=== PATIENT | female | born 1975 | race Caucasian/White ===

== ENCOUNTER 2023-04-05 10:53 | Outpatient (OUT) | payer OTHER, SELFPAY ==
--- NOTE | 2023-04-05 10:56 | MM_ITS ---
Patient Name: DYLAN WALL MR#: [id number] : 1975 Exam Date: 04/05/2023 Ordering Doctor: DR RIMA ZUÑIGA M.D. RADIOLOGY REPORT PROCEDURE: MM TOMOSYNTHESIS SCREENING BI COMPARISON: MM TOMOSYNTHESIS SCREENING BI, 05/08/2016. INDICATIONS: Screening Calculator Name NCI Breast Cancer Risk Assessment Tool 5 Year Breast Cancer Risk 0.80% Lifetime Breast Cancer Risk 8.30% Personal Breast Cancer No Personal Ovarian Cancer No Treatments None Family Cancers None LOCATION: [facility] BREAST COMPOSITION: Heterogeneously dense,which may obscure small masses. FINDINGS: DIAGNOSTIC CATEGORY 2--BENIGN FINDING. NO CHANGE FROM COMPARISON. Scattered benign-appearing nodules are present. Scattered benign-appearing calcifications are present. Scattered benign-appearing lymph nodes are present. RIGHT BREAST: No significant suspicious finding. LEFT BREAST: No significant suspicious finding. RECOMMENDATIONS: ROUTINE MAMMOGRAM AND CLINICAL EVALUATION IN 12 MONTHS. PLEASE NOTE: A NORMAL MAMMOGRAM DOES NOT EXCLUDE THE POSSIBILITY OF BREAST CANCER. A CLINICALLY SUSPICIOUS PALPABLE LUMP SHOULD BE BIOPSIED. Dictated by: Keyon Parks MD on 04/05/2023 at 15:35 Approved by: Keyon Parks MD on 04/05/2023 at 15:37
== END 2023-04-05 10:54 | disposition home or self-care (01) ==
LOC: MAMMO 10:53
PROVIDERS: PCP Family Medicine; Visit Provider Family Medicine
DX: Z12.31 Encounter for screening mammogram for malignant neoplasm of breast (principal)
CPT/HCPCS: 77063; 77067

== ENCOUNTER 2023-09-08 15:25 | Emergency (ER) | payer OTHER, SELFPAY ==
[2023-09-08 15:36] VITALS: BP 143/124; PULSE 82; TEMP 36.9; O2SAT 99; BMI 32.7
--- OUTSIDE RECORDS SUMMARY | 2023-09-08 15:37 | XMS_ITS | CCD ---
Author Organization [facility] Care Team Providers Care Soccer Ball Assembler Name Role Phone MARIE ZUÑIGA Admitting Unavailable MARIE ZUÑIGA Attending Unavailable MARIE ZUÑIGA Consulting Unavailable Sana Dorantes Primary Care Provider BladesJackie Unavailable Jackie Luna Admitting Unavailable Jackie Luna Attending Unavailable Marie Zuñiga Primary Care Unavailable MD Jackie Luna Attending Provider MD Marie Zuñiga Primary Care Provider Allergies Allergy Classification Reported Allergen(s) Allergy Type Date of Onset Reaction(s) Facility Unclassified (2 sources) Seasonal allergy Allergy to substance 3 Other: See Comments [facility] (1 source) Milk Drug allergy (disorder) 5 [facility] (1 source) Ragweed Drug allergy (disorder) 7 [facility] (2 sources) Morphine Drug Allergy 1 [facility] Rep[facility] Medications Current Medications Medication Drug Class(es) Dates Sig (Normalized) Sig (Original) fexofenadine hydrochloride 180 mg oral tablet (5 sources) Histamine-1 Receptor Antagonist Start: 10-14-2020 take 1 tablet by mouth every twenty-four hours Fexofenadine (Ludivina) 180 mg Tablet Active 180 MG PO Q24H October 14, 2020 12:00am Ludivina Active FEXOFENADINE HCL (LUDIVINA ORAL) Take by mouth. 0 Active Comment on above: Take by mouth. L. Acidophilus-L. Rhamnosus (Probiotic) 15 billion cell Capsule (1 source) Start: 10-14-2020 take 1 capsule by mouth once daily in the morning L. Acidophilus-L. Rhamnosus (Probiotic) 15 billion cell Capsule Active 15 CAP PO Every morning October 14, 2020 12:00am lysine 500 mg oral tablet (1 source) Start: 10-14-2020 take 1 tablet by mouth once daily in the morning Lysine (L-Lysine) 500 mg Tablet Active 500 MG PO Every morning October 14, 2020 12:00am Multivitamin preparation (1 source) Start: 10-14-2020 take 1 tablet by mouth once daily in the morning Multivitamin Active 1 TAB PO Every morning October 14, 2020 12:00am [place] 5-Zge-Qpj-Fish Oil (Fish Oil) 60-90-500 mg Capsule (1 source) Start: 10-14-2020 take 1 capsule by mouth once daily in the morning [place] 7-Roh-Hyr-Fish Oil (Fish Oil) 60-90-500 mg Capsule Active 1 CAP PO Every morning October 14, 2020 12:00am Completed/Discontinued Medications Medication Drug Class(es) Dates Sig (Normalized) Sig (Original) acetaminophen 325 mg / oxyCODONE hydrochloride 5 mg oral tablet (2 sources) Opioid Agonist Start: 11-01-2012 take 1 tablet by mouth every four hours as needed oxyCODONE-acetam inophen (PERCOCET) 5-325 mg tablet Take 1 tablet by mouth every 4 hours as needed for Pain. 30 tablet 0 11/01/2012 Active Comment on above: Take 1 tablet by luz maria th every 4 hours as needed for Pain. docusate sodium 100 mg oral capsule (2 sources) Start: 11-01-2012 take 1 capsule by mouth twice daily docusate sodium (COLACE) 100 mg capsule Take 1 capsule by mouth twice daily. 40 capsule 2 11/01/2012 Active Comment on above: Take 1 capsule by mo [facility] twice daily. ibuprofen 600 mg oral tablet (4 sources) Nonsteroidal Anti-inflammatory Drug Start: 11-01-2012 take 1 tablet by mouth every six hours as needed ibuprofen 600 mg tablet Take 1 tablet by mouth every 6 hours as needed for Pain. 60 tablet 2 11/01/2012 Active Motrin Active Comment on above: Take 1 tablet by luz maria th every 6 hours as needed for Pain. 12 hr pseudoephedrine hydrochloride 120 mg extended release oral tablet (2 sources) alpha-Adrenergic Agonist Start: 10-23-19 13 take 1 tablet by mouth every twelve hours Pseudoephedrine HCl (12 HOUR DECONGESTANT) 120 mg TbER Take 1 tablet by mouth every 12 hours. 0 10/22/2012 Active Comment on above: Take 1 tablet by luz maria th every 12 hours. Problems Problem Classification Problem Date Documented Date Episodic/Chronic Other acquired deformities (2 sources) Lumbar spondylolisthesis; Translations: [Spondylolisthesis, lumbar region] Episodic Other connective tissue disease (2 sources) Enthesopathy of hip region; Translations: [Other specified enthesopathies of left lower limb, excluding foot] Episodic Other and delivery including normal (1 source) test positive; Translations: [Encounter for test, result positive] Episodic Unclassified (1 source) Low back pain, unspecified; Translations: [Low back pain, unspecified] Onset: 06-08-2022 Results Test Name Value Interpretation Reference Range Facil ity MRI Lumbar Spine w/oon 02-03 MRI Lumbar Spine w/o HISTORY: Low back pain, left leg radiation, numbness and tingling x 1 year PROCEDURE: Multiplanar, multisequence imaging including T1, T2 without contrast. FINDINGS: Normal lumbar vertebral body height, relatively normally aligned. No bone marrow edema or fracture. No deep soft tissue inflammatory signal. Normal conus medullaris and filum terminale. Unremarkable paravertebral soft tissues, kidneys, and collecting systems. T12/L1 - L2/3: Normal. L3/4: Minimal disc space loss. 2 mm anterolisthesis, minimal disc bulging. Broad-based left annular tear occupying the exit neuroforaminal zone. Mild facet arthropathy. Mild left mid and exit neuroforaminal zone stenosis. No spinal canal stenosis. L4/5: Mild disc space loss. Left lateral recess disc herniation, lateral extension into the left neuroforaminal zone, 6 x 10 mm AP by transverse diameter, cranial caudal length of 20 mm impressing upon the left L4 and L5 nerve roots. Mild right neuroforaminal zone disc bulging. L5/S1: Minimal disc space loss. No disc herniation or spinal canal stenosis. Central broad-based annular tear, mild disc bulging. No spinal canal or neuroforaminal stenosis. IMPRESSION: Left L4/5 lateral recess disc herniation, craniad extension, severe stenosis Report reported and signed by Mariano Cheung on 02/07/2022 0659 Normal [facility] CBC AUTO DIFFon 06-15-2018 Basophils (Bld) [#/Vol] 0.0 103/ul Normal 0.0-0.1 [facility] Comment on above: Performed By: #### H FPFCBC #### [facility] [address] [place], [place] [id number] Francisco Eneida Basophils/100 WBC (Bld) 0.4 % Normal 0.2-2.0 [facility] Comment on above: Performed By: #### H FPFCBC #### [facility] [address] [place], [place] [address] Francisco Eneida Eosinophils (Bld) [#/Vol] 0.2 103/ul Normal 0.0-0.7 [facility] Comment on above: Performed By: #### H FPFCBC #### [facility] [address] [place] [address] Francisco Eneida Eosinophils/100 WBC (Bld) 2.1 % Normal 0.9-7.0 [facility] Comment on above: Performed By: #### H FPFCBC #### [facility] [address] [place] [address] Francisco Eneida Erythrocyte distribution width (RBC) [Ratio] 12.4 % Normal 11.0-15.0 [facility] Comment on above: Performed By: #### H FPFCBC #### [facility] [address] [place] [address] Francisco Eneida Hematocrit (Bld) [Volume fraction] 39.2 % Normal 36.0-48.0 [facility] Comment on above: Performed By: #### H FPFCBC #### [facility] [address] [place], [place] [address] Francisco Eneida Hemoglobin (Bld) [Mass/Vol] 13.0 g/dL Normal 12.0-16.0 [facility] Comment on above: Performed By: #### H FPFCBC #### [facility] [address] [place] [address] Francisco Eneida IG # 0.02 10e3/ul Normal 0.00-0.03 [facility] Comment on above: Performed By: #### H FPFCBC #### [facility] [address] [place] [address] Francisco Eneida IG % 0.3 % Normal 0.0-0.5 [facility] Comment on above: Performed By: #### H FPFCBC #### [facility] [address] [place] [address] Francisco Eneida Lymphocytes (Bld) [#/Vol] 2.1 103/ul Normal 1.2-3.8 [facility] Comment on above: Performed By: #### H FPFCBC #### [facility] [address] [place] [address] Francisco Eneida Lymphocytes/100 WBC (Bld) 27.6 % Normal 20.5-60.0 [facility] Comment on above: Performed By: #### H FPFCBC #### [facility] [address] [place] [address] Francisco Eneida MCH (RBC) [Entitic mass] 30.4 pg Normal 26.7-34.0 [facility] Comment on above: Performed By: #### H FPFCBC #### [facility] [address] [place] [address] Francisco Eneida MCHC (RBC) [Mass/Vol] 33.2 g/dL Normal 29.9-35.2 [facility] Comment on above: Performed By: #### H FPFCBC #### [facility] [address] [place] [address] Francisco Eneida MCV (RBC) [Entitic vol] 91.8 fL Normal 81.0-99.0 [facility] Comment on above: Performed By: #### H FPFCBC #### [facility] [address] [place] [address] Francisco Eneida Monocytes (Bld) [#/Vol] 0.7 103/ul Normal 0.3-0.8 [facility] Comment on above: Performed By: #### H FPFCBC #### [facility] [address] [place], [place] [address] Francisco Eneida Monocytes/100 WBC (Bld) 9.3 % Normal 1.7-12.0 [facility] Comment on above: Performed By: #### H FPFCBC #### [facility] [address] [place] [address] Francisco Eneida Neutrophils (Bld) [#/Vol] 4.6 103/ul Normal 1.4-6.5 [facility] Comment on above: Performed By: #### H FPFCBC #### [facility] [address] [place], [place] [address] Francisco Eneida Neutrophils/100 WBC (Bld) 60.3 % Normal 43.0-75.0 [facility] Comment on above: Performed By: #### H FPFCBC #### [facility] [address] [place], [place] [address] Francisco Eneida Platelet mean volume (Bld) [Entitic vol] 9.9 fL Normal 9.5-13.5 [facility] Comment on above: Performed By: #### H FPFCBC #### [facility] [address] [place], [place] [address] Francisco Eneida Platelets (Bld) [#/Vol] 291 103/ul Normal 150-450 [facility] Comment on above: Performed By: #### H FPFCBC #### [facility] [address] [place] [address] Francisco Eneida RBC (Bld) [#/Vol] 4.27 106/ul Normal 4.20-5.40 [facility] Comment on above: Performed By: #### H FPFCBC #### [facility] [address] [place] [address] Francisco Eneida WBC (Bld) [#/Vol] 7.6 103/ul Normal 4.0-11.0 [facility] Comment on above: Performed By: #### H FPFCBC #### [facility] [address] [place] [address] Franciscomyra Monique [employer] PROFILEon 06-15- 019 Albumin [Mass/Vol] 3.6 g/dL Normal 3.5-5.0 [facility] Comment on above: Performed By: #### H FPF #### [facility] [address] [place], [place] [address] Francisco Eneida Albumin/Globulin [Mass ratio] 1.0 {ratio} Normal [facility] Comment on above: Performed By: #### H FPF #### [facility] [address] [id number] Francisco Eneida ALP [Catalytic activity/Vol] 98 U/L Normal 38-126 [facility] Comment on above: Performed By: #### H FPF #### [facility] [address] [place], [place] [address] Francisco Eneida ALT [Catalytic activity/Vol] 55 U/L Critically high 9-52 [facility] Comment on above: Performed By: #### H FPF #### [facility] [address] [place] [address] Francisco Eneida AST [Catalytic activity/Vol] 33 U/L Normal 14-36 [facility] Comment on above: Performed By: #### H FPF #### [facility] [address] [place] [address] Francisco Eneida Bilirubin Ql (U) 0.3 mg/dL Normal 0.2-1.3 [facility] Comment on above: Performed By: #### H FPF #### [facility] [address] [place], [place] [address] Francisco Eneida Calcium [Mass/Vol] 8.9 mg/dL Normal 8.4-10.2 [facility] Comment on above: Performed By: #### H FPF #### [facility] [address] [place], [place] [address] Francisco Eneida Chloride [Moles/Vol] 102 mmol/L Normal 98-107 [facility] Comment on above: Performed By: #### H FPF #### [facility] [address] [place], [place] [address] Francisco Eneida CHOL-HDL RATIO NORM SEE BELOW Normal [facility] Comment on above: Result Comment: 3.3 - 4.4 LOW RISK 4.4 - 7.1 AVERAGE RISK 7.1 - 11.0 MODERATE RISK >11.0 HIGH RISK Performed By: #### H FPF #### [facility] [address] [place] [address] Francisco Eneida Cholesterol [Mass/Vol] 180 mg/dL Normal <=200 [facility] Comment on above: Performed By: #### H FPF #### [facility] [address] [place] [address] Francisco Eneida Cholesterol in HDL [Mass/Vol] > or = 60 mg/dl - LOW CARDIOVASCULAR RISK <40 mg/dl - HIGH CARDIOVASCULAR RISK Normal [facility] Comment on above: Performed By: #### H FPF #### [facility] [address] [place], [place] [address] Francisco Eneida Cholesterol in HDL [Mass/Vol] 69 mg/dL Normal [facility] Comment on above: Performed By: #### H FPF #### [facility] [address] [place], [place] [address] Francisco Eneida Cholesterol in LDL [Mass/Vol] 95.4 mg/dL Normal [facility] Comment on above: Performed By: #### H FPF #### [facility] [address] [place], [place] [address] Francisco Eneida Cholesterol in LDL [Mass/Vol] SEE BELOW Normal [facility] Comment on above: Result Comment: <100 mg/dl OPTIMAL 100 - 129 mg/dl NEAR OR ABOVE OPTIMAL 130 - 159 mg/dl BORDERLINE HIGH 160 - 189 mg/dl HIGH >190 mg/dl VERY HIGH Performed By: #### H FPF #### [facility] [address] [place] [address] Francisco Eneida Cholesterol.total/C holesterol in HDL [Mass ratio] 2.6 {ratio} Normal [facility] Comment on above: Performed By: #### H FPF #### [facility] [address] [place] [address] Francisco Eneida CO2 [Moles/Vol] 25.7 mmol/L Normal 22.0-30.0 [facility] Comment on above: Performed By: #### H FPF #### [facility] [address] [id number] Francisco Eneida Creatinine [Mass/Vol] 0.89 mg/dL Normal 0.52-1.04 [facility] Comment on above: Performed By: #### H FPF #### [facility] [address] [id number] Francisco Eneida Globulin (S) [Mass/Vol] 3.5 g/dL Normal [facility] Comment on above: Performed By: #### H FPF #### [facility] [address] [address] Francisco Eneida Glucose [Mass/Vol] 90 mg/dL Normal 74-106 [facility] Comment on above: Performed By: #### H FPF #### [facility] [address] [place] [address] Francisco Eneida Potassium [Moles/Vol] 3.9 mmol/L Normal 3.4-5.0 [facility] Comment on above: Performed By: #### H FPF #### [facility] [address] [address] Francisco Eneida Protein [Mass/Vol] 7.1 g/dL Normal 6.1-8.2 [facility] Comment on above: Performed By: #### H FPF #### [facility] [address] [place] [address] Francisco Eneida Sodium [Moles/Vol] 137 mmol/L Normal 137-145 [facility] Comment on above: Performed By: #### H FPF #### [facility] [address] [address] Francisco Eneida Triglyceride [Mass/Vol] 78 mg/dL Normal <=150 [facility] Comment on above: Performed By: #### H FPF #### [facility] [address] [id number] Francisco Eneida TSH Qn 1.418 uIU/mL Normal 0.470-4.680 [facility] Comment on above: Performed By: #### H FPF #### [facility] [address] [address] Francisco Eneida Urea nitrogen [Mass/Vol] 14.0 mg/dL Normal 7.0-17.0 [facility] Comment on above: Performed By: #### H FPF #### [facility] [address] [place] [address] Francisco Monique Urea nitrogen/Creatinine [Mass ratio] 15.7 mg/mg Normal [facility] Comment on above: Performed By: #### H FPF #### [facility] [address] [place] [address] Francisco Monique VLDL CALC 15.6 mg/dL Normal [facility] Comment on above: Performed By: #### H FPF #### [facility] [address] [place] [address] Francisco Monique No Panel Informationon 05-10 Plant Biology Professor Report Summary: Impression: There is a gestational sac within the uterus with a good decidual reaction. A yolk sac is seen within the gestational sac. It is too early to visualize a pole. The mean gestational sac size is equivalent to 4 weeks and 6 days which is within 4 days of the LMP dating of 5 weeks and 4 days. The LOKI based on LMP is 01/06/14. The left ovary appears normal. The right ovary contains a corpus luteum as described in the section below. No adnexal masses were seen. There is a scant amount of free fluid adjacent to the right ovary. Recommendations: IUP. Repeat u/s in 2 weeks. Indication: Tubal reanastamosis. Ectopic. History: Age: 37 years. Maternal age at EDC: 38 years. Dating: LMP: 04/01/2013 EDC: 01/06/2014 GA by LMP: 5w3d Current Scan on: 05/09/2013 EDC: 01/10/2014 GA by current scan: 4w6d Best Overall Assessment: 05/09/2013 EDC: 01/06/2014 Assessed GA: 5w3d The calculation of the gestational age by current scan was based on GSD. The Best Overall Assessment is based on the LMP. Early Assessment: Biometry: GSD 8.8 mm n/a 4w6d (TREE) Gestational Sac present. Yolk Sac present. Embryo absent. Maternal Structures: Uterus: anteverted. Size: Longitudinal 97 mm. Anterio- posterior 64 mm. Transverse 74 mm. Volume: 240.5 ml. Right Ovary: Right Ovary size: 51 mm x 31 mm x 26 mm. Volume: 21.5 ml. Corpus Luteum Right Ovary: 27 mm x 18 mm x 26 mm. Left Ovary: Left Ovary size: 34 mm x 21 mm x 24 mm. Volume: 9.0 ml. Performed by:Michel Najera RDMS Read by:Maritza Simms M.D. [facility] Encounters Encounter Date Encounter Type Care Provider Facility Start: 08-27-2023 ambulatory Not Availa ble Start: 08-20-2023 End: 08-20-2023 ambulatory Not Available Start: 08-06-2023 End: 08-06-2023 ambulatory Not Available Start: 07-23-2023 End: 07-23-2023 ambulatory Not Available Start: 07-09-2023 End: 07-09-2023 ambulatory Not Available Start: 06-25-2023 End: 06-25-2023 ambulatory Not Available Start: 06-18-2023 End: 06-18-2023 ambulatory Not Available Start: 06-11-2023 End: 06-11-2023 ambulatory Not Available Start: 06-04-2023 End: 06-04-2023 ambulatory Not Available Start: 05-23-2023 End: 05-23-2023 ambulatory Not Available Start: 05-07-2023 End: 05-07-2023 ambulatory Not Available Start: 04-16-2023 End: 04-16-2023 ambulatory Not Available Start: 03-26-2023 End: 03-26-2023 ambulatory Not Available Start: 03-12-2023 End: 03-12-2023 ambulatory Not Available Start: 02-26-2023 End: 02-26-2023 ambulatory Not Available Start: 02-12-2023 End: 02-12-2023 ambulatory Not Available Start: 01-08-2023 End: 01-08-2023 ambulatory Not Available Start: 12-25-2022 End: 12-25-2022 ambulatory Not Available Start: 06-08-2022 End: 06-08-2022 ambulatory Jackie Luna Facility:[facility] Start: 06-08-2022 End: 06-08-2022 Discharged Recurring MD Marie Zuñiga Work Phone: [facility] [address] Start: 02-21-2022 End: 02-21-2022 ambulatory Jackie Luna Other [facility] [employer] Other Start: 02-21-2022 Encounter by mary Luna [facility] Start: 06-15-2018 End: 06-16-2018 Patient encounter procedure MARIE ZUÑIGA Facility:[facility] Start: 05-07-2013 End: 05-07-2013 Telephone encounter Dale Culp MD Work Phone: Gynecology Start: 02-28-2013 End: 02-28-2013 Telephone encounter Dale Culp MD Work Phone: Gynecology Procedures Date Procedure Procedure Detail Performing Clinician Start: 05-09-2013 OBSTETRIC ULTRASOUND WHI Dale Culp MD Work Phone: Plan of Treatment Date Care Activity Detail Author Start: 10-06-2020 Influenza vaccination INFLUENZA (Sea son Ended) [facility] Start: 06-14-2019 DIABETES SCREEN DIABETES SCREEN [facility] Start: 06-14-2019 LIPID SCREEN LIPID SCREEN [facility] Start: 2014 Mammography MAMMOGRAM [facility] Start: 2004 HPV TESTING HPV TESTING [facility] Start: 06-14-1995 PAP TESTING PAP TESTING [facility] Start: 1993 Urine microalbumin profile DTAP,TDAP ,TD (1 - Tdap) [facility] Start: 1992 HEPATITIS C SCREENING HEPATITIS C SC REENING [facility] Start: 1992 HIV SCREENING HIV SCREENING [facility] Start: 1986 Adult depression scr eening assessment DEPRESSION SCREENING [facility] Immunizations Immunization Date Immunization Notes Care Provider Jen ibarra 09-29-2020 COVID-19 Amarilis Azul (Pfizer) MD Marie Zuñiga Work Phone: [facility] 09-08-2020 COVID-19 Amarilis Azul (Pfizer) MD Marie Zuñiga Work Phone: [facility] Payers Date Payer Category Payer Unknown [id number] 2012 Unknown [employer] PPO [id number] 2012-2019 PPO [id number] 2012 Self-pay SELF PAY PACKAGE PRICING SELF PAY PACKAGE PRICING [id number] 2012-2015 Indemnity [id number] 1974 Unknown [id number] [id number] 1974 Unknown [id number] 2.16.840.1.142007.3.579.2.1258 1974 Unknown [id number] 2.16.840.1.929604.3.579.2.1258 1974 Unknown [id number] 2.16.840.1.958566.3.579.2.1258 1974 Unknown [id number] 2.16.840.1.482583.3.579.2.1258 1974 Unknown [id number] 2.16.840.1.274512.3.579.2.1258 1974 Unknown [id number] 2.16.840.1.206771.3.579.2.1258 1974 Unknown [id number] 2.16.840.1.206425.3.579.2.1258 1974 Unknown [id number] 2.16.840.1.710224.3.579.2.1258 1974 Unknown [id number] 2.16.840.1.091822.3.579.2.1258 1974 Unknown [id number] 2.16.840.1.696434.3.579.2.1258 1974 Unknown [id number] 2.16.840.1.134904.3.579.2.1258 1974 Unknown [id number] 2.16.840.1.253926.3.579.2.1258 1974 Unknown [id number] 2.16.840.1.145801.3.579.2.1258 1974 Unknown [id number] 2.16.840.1.556993.3.579.2.1258 1974 Unknown [id number] 2.16.840.1.470614.3.579.2.9 1974 Unknown [id number] 2.16.840.1.472280.3.579.2.9 1974 Unknown [id number] 2.16.840.1.035226.3.579.2.1259 1959 Self-pay Unknown [id number] 2.16.840.1.194646.3.579.2.593 Unknown [id number] 2.16.840.1.547784.3.579.2.531 Unknown Nava QUINTERO/NATHAN [id number] Social History Date Type Detail Facility Start: 11-28-2012 End: 10-21-2020 Tobacco smoking status NHIS Former smoker [facility] Start: 11-28-2012 Alcohol intake Current non-dr system sales consultant of alcohol (finding) [facility] Start: 1975 Sex Assigned At Not on file C [facility] Sex Assigned At Sex Assigned At [facility] Other Start: 1975 Sex Assigned At Female F [facility] Note 05-08-2013 Telephone Encounter - Shira Bledsoe (Hilda) - 05/08/2013 6:06 PM EDTTelephone Encounter - Ghislaine Shah (Child Life Therapist) - 05/07/2013 3:15 PM EDT Note Date & Type Note Facility 05-08-2013 Miscellaneous Notes Received HCG faxed from [facility] with HCG drawn 05/089=[id number] Pt is feeling well and so will come in tomorrow 05/09 11am for an early US to be sure is in the uterus after her tubal reversal surgery. She denies ectopic warnings. She lives near [place] so will then proceed to OB care there. paulette Simms Patient calls with positive urine test. (1SAB) History of ectopic: No History of pelvic/abdominal surgeries: tubal reversal LMP 04/01/13, fertility medications used this cycle n/a, date of LH surge: n/a, IUI done: n/a Blood type: O, POS, per record, rubella: Immune , varicella: had as a child Current medications: Current outpatient prescriptions: oxyCODONE-acetaminophen (PERCOCET) 5-325 mg tablet Take 1 tablet by mouth every 4 hours as needed for Pain. ibuprofen 600 mg tablet Take 1 tablet by mouth every 6 hours as needed for Pain. docusate sodium (COLACE) 100 mg capsule Take 1 capsule by mouth twice daily. Pseudoephedrine HCl (12 HOUR DECONGESTANT) 120 mg TbER Take 1 tablet by mouth every 12 hours. FEXOFENADINE HCL (LUDIVINA ORAL) Take by mouth. Only taking PNV and Ludivina Advised normal symptoms of and s/s of need for follow up. Labs ordered: HCG: Faxed order to [facility] Dr. Culp [phone]-Patient had a tubal reversal and is would like to speak with the nurse. documented in this encounter [facility] Note 03-18-2013 Telephone Encounter - Ghislaine Shah (Carmine) - 03/18/2013 1:02 PM ESTTelephone Encounter - Shira Bledsoe (Hilda) - 03/18/2013 8:58 AM ESTTelephone Encounter - Ghislaine Shah (Carmine) - 03/07/2013 2:01 PM EST Note Date & Type Note Facility 03-18-2013 Miscellaneous Notes Called [facility]. HC.8 (negative). Patient has already stopped bleeding. Patient knows this was not a period. Next period will be #1 then the following one she can start trying again. Patient in agreement with plan. FYI Dr. Faclone and Gregoria Checking the quant list and I do not see her results for . Note to Ghislaine. Did you get the fax at [place]? Called patient to let her know HCG level. HCG quant= 13.79 Apologized and let her know she will probably start bleeding soon. Denies any cramping or bleeding at this time. Let her know should have a heavier period, but if she starts to soak a pad an hour will need to be evaluated. Will follow HCG levels weekly until negative and then wait 2 normal cycles to start trying again. Patient in agreement and sad as expected and states they will wait until June now. Faxed another req to [place] so the patient has it. Will get this done next Sun or Sun (03/14 or 03/15). PAULETTE Culp Called [facility] to get lab results. Done on 02/28/13 HC.85 Rubella: > 350: immune Called patient to review good lab results. Let her know to get another HCG done to ensure rising appropriately. She will get an HCG done on 03/06/13 at [facility]-see letters. PAULETTE Culp Per the letter, the results should have been faxed to [place]. Note to Ghislaine to check on Sunday. [phone]- Patient calling for test results. Patient calls with positive urine test. History of ectopic: No History of pelvic/abdominal surgeries: Yes, tubal reversal 11/2012 LMP 02/13/13, fertility medications used this cycle n/a, date of LH surge: n/a, IUI done: n/a Blood type: O, POS, Rubella: Unsure , varicella: Immune (per patient) Current medications: Current outpatient prescriptions: oxyCODONE-acetaminophen (PERCOCET) 5-325 mg tablet Take 1 tablet by mouth every 4 hours as needed for Pain. ibuprofen 600 mg tablet Take 1 tablet by mouth every 6 hours as needed for Pain. docusate sodium (COLACE) 100 mg capsule Take 1 capsule by mouth twice daily. Pseudoephedrine HCl (12 HOUR DECONGESTANT) 120 mg TbER Take 1 tablet by mouth every 12 hours. FEXOFENADINE HCL (LUDIVINA ORAL) Take by mouth. States she is not currently taking any medications. Encouraged to start PNV Advised normal symptoms of and s/s of need for follow up. Labs ordered: HCG, rubella- see letters. Faxed to [facility] Patient knows to call Sunday to review. Ectopic reviewed FYI Dr. Culp [phone]- Patient had tubal reversal has a positive was told to call to for an ultrasound to make sure everything was ok. documented in this encounter [facility] Evaluation note Note Date & Type Note Facility Evaluation note Diagnosis Positive test- Primary examination or test, positive result documented in this encounter [facility] Evaluation note Note Date & Type Note Facility Evaluation note No Information [facility] Other Evaluation note Note Date & Type Note Facility Evaluation note No assessment information [facility] Work Phone: History general Narrative - Reported Note Date & Type Note Facility History general Narrative - Reported Type Medical History gall bladder disease Medical History kidney stones Surgical History hysterectomy Surgical History uterine ablation Surgical History cholecystectomy Hospitalization History see surg Hx UTOPY Other Summary Purpose Family History No Family History Records Found Relationship Condition Age at Onset Recorded Date/T ginger Not Specified No known health problems Unknown Advance Directives No Advanced Directives Records Found Advance Directive Response Recorded Date/ Time Advance Directives No October 1:43pm Chief Complaint and Reason for Visit Chief Complaint V capsulitis L hip Additional Source Comments INFORMATION SOURCE (unrecogn ized section and content) DATE CREATED AUTHOR 09/13/2018 [facility] DATE CREATED AUTHOR AUTHOR'S ORGANIZ ATION 02/07/2022 [facility] DATE CREATED AUTHOR AUTHOR'S ORGANIZ ATION 08/21/2022 [facility] DATE CREATED AUTHOR AUTHOR'S ORGANIZ ATION 08/29/2023 [facility] d[facility] Specialists EPIC Source Comments (unrecognize d section and content) In the event this informatio n is protected by the Federal Confidentiality of Alcohol and Drug Abuse Patient Records regulations: The Federal rules restrict any use of the information to criminally investigate or prosecute any alcohol or drug abuse patient[facility] the event this information is protected by the Federal Confidentiality of Alcohol and Drug Abuse Patient Records regulations: The Federal rules restrict any use of the information to criminally investigate or prosecute any alcohol or drug abuse [facility] Reason for Visit (unrecogniz ed section and content) Reason Onset Date Comments pos UCG, hx tubal reversal 05/07/2013 Care Teams (unrecognized sec tion and content) Team Status: Active Member Role Status Dates Marie Zuñiga MD Primary Care Provider Active Team Status: Inactive Member Role Status Dates Jackie Luna MD Attending Provider Active Marie Zuñiga MD Primary Care Provider Active Goals (unrecognized section and content) Goals may be documented in a n alternate section FOR RECORDS PERTAINING TO PATIENTS WHO ARE OR HAVE BEEN ENROLLED IN A CHEMICAL DEPENDENCY/SUBSTANCEABUSE PROGRAM, SOME INFORMATION MAY BE OMITTED. This clinical summary was aggregated from multiple sources. Caution should be exercised in using it in the provision of clinical care. This summary normalizes information from multiple sources, and as a consequence, information in this document may materially change the coding, format and clinical context of patient data. In addition, data may be omitted in some cases. CLINICAL DECISIONS SHOULD BE BASED ON THE PRIMARY CLINICAL RECORDS. [employer] provides no warranty or guarantee of the accuracy or completeness of information in this document.
--- NOTE | 2023-09-08 15:43 | XR_ITS ---
The [address] [address] Patient Name: DYLAN WALL MRN: [id number] date: 1975 Sex: F Assigned Patient Location: ER Current Patient Location: ER Accession/Order Number: [id number] Exam Date: 09/08/2023 16:10 Report Date: 09/08/2023 16:44 At the request of: CATY AHMADI Procedure: XR shoulder LT min 2V PROCEDURE: XR shoulder LT min 2V HISTORY: Pain, injury COMPARISON: None. FINDINGS: BONES:Concentric shaped 14 mm opacity projecting cephalad to the lateral aspect of left humeral head; possible cortical avulsion, although no appreciable donor site. Unremarkable glenohumeral joint and acromioclavicular joint. SOFT TISSUES:No visible soft tissue swelling. EFFUSION:None visible. OTHER: Negative. XR/XR shoulder LT min 2V IMPRESSION: 1. Nonspecific density projecting over region of superior rotator cuff, but suspicious for cortical avulsion/rotator cuff disruption. Consider follow-up with nonemergent MRI of left shoulder. Electronically authenticated by: CHRISTELLE CHÁVEZ Date: 09/08/2023 16:44
[2023-09-08 15:49] VITALS: BP 145/90
--- NOTE | 2023-09-08 16:07 | ED.UPPEXIN1 ---
HPI HPI - Extremity Injury (Upper) General Chief Complaint: Extremity Injury, Upper Stated Complaint: UE INJURY Time Seen by Provider: 09/08/23 15:40 Source: patient Mode of arrival: walk-in History of Present Illness HPI narrative: 48-year-old female presents for left shoulder pain. She has been having this for the past 3 days after lifting to very heavy boxes. The patient's states that it took all she had to lift the boxes. She did not fall and nothing struck her in the shoulder. It hurts more to lift arm up in the air. Yesterday she saw her doctor who gave her Toradol and some exercises to do. No x-ray has been done. Related Data Allergies Allergy/AdvReac Type Severity Reaction Status Date / Time No Known Drug Allergies Allergy Verified 09/08/23 15:39 Opioid HPI Opioid Management Most Recent Pain and Opioid Data: No Data to Display Review of Systems ROS Narrative A ten point review of systems is negative except as noted above. Exam Narrative Exam Narrative: Nurses note and vital signs reviewed and patient is not hypoxic. General: The patient appears well and in no apparent distress. Patient is resting comfortably on cart. Skin: Warm, dry, no pallor noted. There is no rash noted. Head: Normocephalic, atraumatic Eye: Normal conjunctiva, no drainage Ears, Nose, Mouth, and Throat: oral mucosa is moist. Nares patent. Cardiovascular: Regular Rate and Rhythm Respiratory: Patient is in no distress, no accessory muscle use, lungs are clear to auscultation, no wheezing, rales or rhonchi GI: Soft and nontender Musculoskeletal: The left shoulder is examined. There is no deformity or bruise or rash. She is quite reluctant to abduct her arm. Neurological: Awake and alert. Left hand and fingers have full range of motion. Radial pulse 2+ Psychiatric: Cooperative Constitutional Vital Signs, click to edit/add: Last Vital Signs Temp 98.4 F 09/08/23 15:36 Pulse 82 09/08/23 15:36 Resp 16 09/08/23 15:36 BP 145/90 H 09/08/23 15:49 Pulse Ox 99 09/08/23 15:36 O2 Del Method Room Air 09/08/23 15:36 Course Vital Signs Vital signs: Vital Signs Temperature 98.4 F 08/03/24 15:36 Pulse Rate 82 09/08/23 15:36 Respiratory Rate 16 09/08/23 15:36 Blood Pressure 143/124 H 09/08/23 15:36 Pulse Oximetry 99 09/08/23 15:36 Oxygen Delivery Method Room Air 09/08/23 15:36 Temperature 98.4 F 09/08/23 15:36 Pulse Rate 82 09/08/23 15:36 Respiratory Rate 16 09/08/23 15:36 Blood Pressure 145/90 H 09/08/23 15:49 Pulse Oximetry 99 09/08/23 15:36 Oxygen Delivery Method Room Air 09/08/23 15:36 MDM - Extremity Injury (Upper) MDM Narrative Medical decision making narrative: X-rays consistent with rotator cuff injury. She was placed in a sling and advised not to wear it for more than 3 days. Follow-up appointment with orthopedics is made for her. She does not want anything stronger for pain, she states she does not do well with strong pain medications. Treatment diagnosis and follow-up were discussed with the patient. Differential Diagnosis Differential diagnosis: Likely other (Shoulder strain, rotator cuff injury, fracture) Imaging Data Left shoulder x-ray: Radiologist's impression: ITS Impressions Shoulder X-Ray 09/08/23 15:43 IMPRESSION: 1. Nonspecific density projecting over region of superior rotator cuff, but suspicious for cortical avulsion/rotator cuff disruption. Consider follow-up with nonemergent MRI of left shoulder. Electronically authenticated by: CHRISTELLE CHÁVEZ Date: 09/08/2023 16:44 Discharge Plan Discharge Stand Alone Forms: Portal Instructions Chief Complaint: Extremity Injury, Upper Clinical Impression: Injury of left rotator cuff Patient Disposition: Home, Self-Care Time of Disposition Decision: 16:57 Condition: Good Mode of Transportation: Private Vehicle Print Language: [place] Islander Instructions: Rotator Cuff Injury (ED) Additional Instructions: Follow-up with Dr. Rangel Referrals: RIMA ZUÑIGA [Primary Care Provider] - 1 week Christelle Rangel MD [Physician] - 1 week
== END 2023-09-08 17:10 | disposition home or self-care (01) ==
PROVIDERS: Emergency Provider Emergency Medicine; PCP Family Medicine
DX: S46.002A Unspecified injury of muscle(s) and tendon(s) of the rotator cuff of left shoulder, initial encounter (principal); X50.0XXA Overexertion from strenuous movement or load, initial encounter
CPT/HCPCS: 73030; 99283